=== PATIENT | female | born 1995 | race Caucasian/White ===

== ENCOUNTER 2017-09-28 09:49 | Emergency (ER) | payer OTHER ==
[~2017-09-28] VITALS: Ht 180.3 cm; Wt 94.0 kg
[2017-09-28 10:35] LABS: BASOPHIL (%) 0.6 % (0-1); BASOPHIL COUNT 0.1 K/uL (0-0.1); EOSINOPHIL (%) 1.5 % (0-5); EOSINOPHIL COUNT 0.1 K/uL (0-0.3); HEMATOCRIT 38.3 % (36.0-46.0); HEMOGLOBIN 12.5 G/DL (11.9-15.5); IMMATURE GRANULOCYTE (%) 0.4 % (0.0-0.7); LYMPHOCYTE (%) 14.8 % (15-42); LYMPHOCYTE COUNT 1.2 K/uL (1.0-2.8); MCH 27.2 PG (29.0-34.0); MCHC 32.6 G/DL (30.0-36.0); MCV 83.4 FL (83-99); MONOCYTE (%) 6.4 % (3-12); MONOCYTE COUNT 0.5 K/uL (0-0.8); NEUTROPHIL (%) 76.3 % (45-76); NEUTROPHIL COUNT 6.1 K/uL (1.8-6.4); PLATELET COUNT 210 K/uL (156-360); RBC DIS.WIDTH-CV 14.2 % (11.8-14.6); RBC DIS.WIDTH-SD 42.9 % (39-53); RED BLOOD COUNT 4.59 M/uL (3.80-5.20)
[2017-09-28 10:43] LABS: ALBUMIN 4.2 g/dL (3.2-4.8)
[2017-09-28 10:44] LABS: CHLORIDE 109 mEq/L (99-109); POTASSIUM 4.1 mEq/L (3.7-5.4); SODIUM 141 mEq/L (136-147)
[2017-09-28 10:46] LABS: GLUCOSE 106 mg/dL (70-99); TOTAL PROTEIN 6.8 g/dL (6.4-8.3)
[2017-09-28 10:48] LABS: TOTAL BILIRUBIN 0.4 mg/dL (0.0-1.0)
[2017-09-28 10:49] LABS: ALKALINE PHOSPHATASE 52 IU/L (3-129)
[2017-09-28 10:50] LABS: CREATININE 0.8 mg/dL (0.6-1.3); GFR ESTIMATE (CALCULATED) > 59 mL/min/
[2017-09-28 10:51] LABS: AST (GOT) 22 IU/L (2-34); UREA NITROGEN (BUN) 23 mg/dL (9-23)
[2017-09-28 10:52] LABS: ALT (GPT) 21 IU/L (3-49)
[2017-09-28 10:53] LABS: LIPASE 20 U/L (1.0-51.0)
[2017-09-28 11:23] LABS: APPEARANCE SL.HAZY ((CLEAR)); BILIRUBIN NEGATIVE; BLOOD NEGATIVE; COLOR YELLOW ((YELLOW)); GLUCOSE (STRIP) NEGATIVE; KETONES NEGATIVE; LEUKOCYTES TRACE; NITRITE NEGATIVE; PROTEIN (STRIP) 30; SPECIFIC GRAVITY 1.023 (1.000-1.030); UROBILINOGEN 0.2 MG/DL (0.2-1.0)
[2017-09-28 11:25] LABS: BACTERIA RARE /HPF; EPITHELIAL CELLS 1+ /HPF; MUCUS TRACE /LPF; RED BLOOD CELLS 0-5 /HPF (0-5); UCUL ADDED? NO; WHITE BLOOD CELLS 0-5 /HPF (0-5)
[2017-09-28] MEDS ORDERED: ZOFRAN ODT4 MG PO (12:40)
[2017-09-28 12:56] VITALS: BP 128/64
[2017-09-29] MEDS ORDERED: MOTRIN800 MG PO (05:44)
[2017-09-29] MEDS ORDERED: PERCOCET 10/1 TABLET PO (05:44)
[2017-09-29] MEDS ORDERED: DOXYCYCLINE HY100 MG PO (08:59)
[2017-09-29] MEDS ORDERED: NAPROXEN250 MG PO (09:00)
[2017-09-29] MEDS ORDERED: TRETINOIN20 GM TP (09:00)
[2017-09-29] MEDS ORDERED: CYANOCOBALAM1000 MCG PO (09:01)
[2017-09-29] MEDS ORDERED: ADULT ONE DAI200 MCG PO (09:02)
[2017-09-29] MEDS ORDERED: PERCOCET 5/31 TABLET PO (09:02)
== END 2017-09-28 12:56 | disposition home or self-care (01) ==
LOC: EME 09:49
PROVIDERS: Emergency Medicine
DX: R10.9 Unspecified abdominal pain (principal); R93.5 Abnormal findings on diagnostic imaging of other abdominal regions, including retroperitoneum; Z88.2 Allergy status to sulfonamides
CPT/HCPCS: 74177; 80053; 81003; 81025; 83605; 83690; 85025; 99281; 99284; J2270; J2405; J7030

== ENCOUNTER 2017-09-29 03:53 | Emergency (ER) | payer OTHER ==
[~2017-09-29] VITALS: Ht 180.3 cm; Wt 95.2 kg
[~2017-09-29 03:53] MED LIST: ZOFRAN ODT4 MG PO
[2017-09-29 04:48] LABS: HEMATOCRIT 37.7 % (36.0-46.0); HEMOGLOBIN 12.3 G/DL (11.9-15.5); MCH 27.6 PG (29.0-34.0); MCHC 32.6 G/DL (30.0-36.0); MCV 84.5 FL (83-99); PLATELET COUNT 233 K/uL (156-360); RBC DIS.WIDTH-CV 14.1 % (11.8-14.6); RBC DIS.WIDTH-SD 43.8 % (39-53); RED BLOOD COUNT 4.46 M/uL (3.80-5.20); WHITE BLOOD COUNT 10.4 K/uL (4.1-10.2)
[2017-09-29 04:56] LABS: ALBUMIN 4.2 g/dL (3.2-4.8); CHLORIDE 107 mEq/L (99-109); POTASSIUM 3.9 mEq/L (3.7-5.4); SODIUM 141 mEq/L (136-147)
[2017-09-29 04:58] LABS: GLUCOSE 104 mg/dL (70-99)
[2017-09-29 04:59] LABS: TOTAL PROTEIN 6.9 g/dL (6.4-8.3)
[2017-09-29 05:02] LABS: ALKALINE PHOSPHATASE 50 IU/L (3-129); CREATININE 0.9 mg/dL (0.6-1.3); GFR ESTIMATE (CALCULATED) > 59 mL/min/
[2017-09-29 05:03] LABS: UREA NITROGEN (BUN) 20 mg/dL (9-23)
[2017-09-29 05:04] LABS: AST (GOT) 21 IU/L (2-34)
[2017-09-29 05:05] LABS: ALT (GPT) 21 IU/L (3-49)
[2017-09-29 05:12] LABS: TOTAL BILIRUBIN 0.5 mg/dL (0.0-1.0)
[2017-09-29 05:14] LABS: QUANTITATIVE HCG < 4.0 MIU/ML
[2017-09-29 05:29] LABS: APPEARANCE SL.HAZY ((CLEAR)); BILIRUBIN NEGATIVE; BLOOD NEGATIVE; COLOR YELLOW ((YELLOW)); GLUCOSE (STRIP) NEGATIVE; KETONES NEGATIVE; LEUKOCYTES TRACE; NITRITE NEGATIVE; PROTEIN (STRIP) NEGATIVE; SPECIFIC GRAVITY 1.036 (1.000-1.030); UROBILINOGEN 0.2 MG/DL (0.2-1.0)
[2017-09-29 05:32] LABS: BACTERIA NONE SEEN /HPF; EPITHELIAL CELLS RARE /HPF; MUCUS TRACE /LPF; RED BLOOD CELLS 0-5 /HPF (0-5); UCUL ADDED? NO; WHITE BLOOD CELLS 0-5 /HPF (0-5)
[2017-09-29] MEDS ORDERED: PERCOCET 10/1 TABLET PO (05:44)
[2017-09-29] MEDS ORDERED: MOTRIN800 MG PO (05:44)
[2017-09-29 08:07] LABS: SOURCE SWAB
[2017-09-29] MEDS ORDERED: DOXYCYCLINE HY100 MG PO (08:59)
[2017-09-29] MEDS ORDERED: NAPROXEN250 MG PO (09:00)
[2017-09-29] MEDS ORDERED: TRETINOIN20 GM TP (09:00)
[2017-09-29] MEDS ORDERED: CYANOCOBALAM1000 MCG PO (09:01)
[2017-09-29] MEDS ORDERED: PERCOCET 5/31 TABLET PO (09:02)
[2017-09-29] MEDS ORDERED: ADULT ONE DAI200 MCG PO (09:02)
[2017-09-29 09:23] VITALS: BP 123/67
[2017-09-29 11:43] VITALS: BP 128/58
[2017-09-30 02:32] VITALS: BP 138/61
[2017-09-30 07:37] VITALS: BP 127/61
[2017-09-30 08:11] LABS: BASOPHIL (%) 0.4 % (0-1); BASOPHIL COUNT 0.1 K/uL (0-0.1); EOSINOPHIL (%) 0 % (0-5); HEMATOCRIT 31.8 % (36.0-46.0); IMMATURE GRANULOCYTE (%) 0.5 % (0.0-0.7); LYMPHOCYTE (%) 8.2 % (15-42); LYMPHOCYTE COUNT 1.1 K/uL (1.0-2.8); MCH 26.5 PG (29.0-34.0); MCHC 31.4 G/DL (30.0-36.0); MCV 84.4 FL (83-99); MONOCYTE (%) 6.3 % (3-12); MONOCYTE COUNT 0.8 K/uL (0-0.8); NEUTROPHIL (%) 84.6 % (45-76); PLATELET COUNT 200 K/uL (156-360); RBC DIS.WIDTH-CV 13.7 % (11.8-14.6); RBC DIS.WIDTH-SD 42.2 % (39-53); RED BLOOD COUNT 3.77 M/uL (3.80-5.20); WHITE BLOOD COUNT 12.9 K/uL (4.1-10.2)
[2017-09-30] MEDS ORDERED: IBUPROFEN800 MG PO (10:30)
[2017-09-30] MEDS ORDERED: ENDOCET 5-3251 EACH PO (10:30)
== END 2017-09-30 11:08 | disposition home or self-care (01) ==
LOC: EME 03:53 → 5WEST 08:07 → 2EASTP 08:07 → EDOF 08:07 → ENRESERV 08:16 → 5WEST 09:11 → ENRESERV 09-30 00:55 → 2EASTP 09-30 02:30
PROVIDERS: Obstetrics & Gynecology Obstetrics; Physician Assistant
DX: N83.292 Other ovarian cyst, left side (principal); N83.53 Torsion of ovary, ovarian pedicle and fallopian tube; I82.890 Acute embolism and thrombosis of other specified veins; R19.09 Other intra-abdominal and pelvic swelling, mass and lump; Z88.2 Allergy status to sulfonamides
CPT/HCPCS: 76856; 80053; 81003; 84702; 85025; 85027; 86850; 86900; 86901; 87210; 87491; 87591; 88305; 99281; 99285; G0378; J0330; J1100; J1170; J1885; J2270; J2405; J2710; J3010; J7050; J7120; S0020